=== PATIENT | female | born 1960 | race Caucasian/White ===

== ENCOUNTER 2022-05-29 01:03 | Day surgery (SDC) | payer OTHER, SELFPAY ==
[2022-05-15 13:26] VITALS: BMI 24.2
[2022-05-29 06:24] VITALS: BP 131/84; PULSE 72; RESP 18; TEMP 36.4; O2SAT 97; BMI 25.0
[2022-05-29] MEDS: LACTATED RINGERS 1,000 ML 150 ML IV CONT (06:27)
--- NOTE | 2022-05-29 07:21 | PM.HPGS ---
History of Present Illness History of Present Illness Consent: Risks, benefits, and alternatives have been discussed and questions answered. Patient agrees to proceed with procedure. Chief complaint: positive cologuard test Narrative: Penelope Casas is a 61 year old female Presents for screening colonoscopy. Patient recently identified with positive Cologuard test. Patient reports that her current weight appetite and bowel movements are normal. Patient denies abdominal pain. She has had no bleeding. Family history noncontributory. Review of Systems Review of Systems: Review of systems noncontributory. [facility] Past Medical History Medical History (Updated 03/21/22 @ 16:19 by Camille Maurer PA-C) History of basal cell cancer Hyperlipidemia Seborrheic keratoses Surgical History Surgical History History of tonsillectomy Family History Family History (Updated 02/26/22 @ 11:45 by Adrienne Lobo MA) Mother Depression Father No problems noted. Sibling No problems noted. Social History Social History (Updated 02/26/22 @ 11:47 by Adrienne Lobo MA) Years smoked: 15 Smoking status: Current every day smoker Tobacco type: cigarettes Alcohol intake: current Drinks per week: 1 Substance use: never Substance use type: does not use Lack of Transportation: No Lack of Food: Never True Current Housing: I Have Housing Concerned About Future Housing: No Difficulty Paying Gas/Electric Bills: No Difficulty Paying for Meds: No Currently Unemployed: No Difficulty w/ Childcare or Family Care: No Living arrangements: with family Occupation/Education: occupation Gender identity (if verbalized by the patient): Female Spiritual care concerns: No Meds Home Medications and Allergies Home Medications Medication Instructions Recorded Confirmed Type B6 1.7 mg-folic 400 mcg-B12 2.4 1 cap PO DAILY 02/26/22 05/29/22 History qlm-dwakbf-qzbaugflxojj oral capsule (Neuriva Plus Brain Performance) escitalopram oxalate 10 mg tablet 10 mg PO DAILY #90 tabs 02/26/22 05/29/22 Rx (Lexapro) omega-3 900 mg-dha 360 mg-epa 455 1 cap PO DAILY 02/26/22 05/29/22 History mg-fish oil 1,000 mg capsule guar gum 1 gram tablet 1 g PO DAILY 05/15/22 05/29/22 History multivitamin with minerals-folic 1 tablet PO DAILY 05/15/22 05/29/22 History acid 0.4 mg tablet Allergies Allergy/AdvReac Type Severity Reaction Status Date / Time No Known Allergies Allergy Verified 05/29/22 06:23 Vital Signs Vital Signs - 24 hr 05/29/22 06:24 Temperature 97.5 F L Pulse Rate 72 Respiratory Rate 18 Blood Pressure 131/84 Pulse Oximetry 97 Oxygen Delivery Room Air Exam Narrative: Physical exam reveals patient to be alert. Vital signs stable. HEENT exam is unremarkable. Patient is anicteric. Lungs are clear to auscultation and percussion. Heart is without murmur or extra sounds. Abdomen bowel sounds are present soft nontender with no organomegaly. Digital external rectal exam is normal. Assessment and Plan Assessment and plan (1) Positive colorectal cancer screening using Cologuard test: Code(s): R19.5 - Other fecal abnormalities Status: Acute Assessment and Plan: Patient had positive Cologuard test. There for screening colonoscopy will be performed today. Further recommendations may be given after endoscopy.
--- NOTE | 2022-05-29 07:32 | WPDANESEPPF ---
Anes - Initial Pre Proc Eval Procedure: Operation Date: 05/29/22 07:30 Proposed Procedures p Colonoscopy - Ron Neville MD Date/Time: 05/29/22 07:32 Surgeon: Ron Neville MD Pre Op Diagnosis: positive cologuard test Patient Data Age: 61 Gender: F Height: 1.68 m Weight: 70.2 kg Last Vital Signs Temp 97.5 F L 05/29/22 06:24 Pulse 72 05/29/22 06:24 Resp 18 05/29/22 06:24 BP 131/84 05/29/22 06:24 Pulse Ox 97 05/29/22 06:24 O2 Del Method Room Air 05/29/22 06:24 Allergies Allergy/AdvReac Type Severity Reaction Status Date / Time No Known Allergies Allergy Verified 05/29/22 06:23 Home Medications Medication Instructions Recorded Confirmed Type B6 1.7 mg-folic 400 mcg-B12 2.4 1 cap PO DAILY 02/26/22 05/29/22 History sjw-ghgrca-oczbayesszcj oral capsule (Neuriva Plus Brain Performance) escitalopram oxalate 10 mg tablet 10 mg PO DAILY #90 tabs 02/26/22 05/29/22 Rx (Lexapro) omega-3 900 mg-dha 360 mg-epa 455 1 cap PO DAILY 02/26/22 05/29/22 History mg-fish oil 1,000 mg capsule guar gum 1 gram tablet 1 g PO DAILY 05/15/22 05/29/22 History multivitamin with minerals-folic 1 tablet PO DAILY 05/15/22 05/29/22 History acid 0.4 mg tablet Patient hx anesthesia problems: none Family hx anesthesia problems: none Results Review: All pre-operative results and documents have been reviewed as part of the pre-operative evaluation. [facility] Past Medical History Medical History (Updated 03/21/22 @ 16:19 by Camille Maurer PA-C) History of basal cell cancer Hyperlipidemia Seborrheic keratoses Surgical History Surgical History History of tonsillectomy Family History Family History (Updated 02/26/22 @ 11:45 by Adrienne Lobo MA) Mother Depression Father No problems noted. Sibling No problems noted. Social History Social History (Updated 02/26/22 @ 11:47 by Adrienne Lobo MA) Years smoked: 15 Smoking status: Current every day smoker Tobacco type: cigarettes Alcohol intake: current Drinks per week: 1 Substance use: never Substance use type: does not use Lack of Transportation: No Lack of Food: Never True Current Housing: I Have Housing Concerned About Future Housing: No Difficulty Paying Gas/Electric Bills: No Difficulty Paying for Meds: No Currently Unemployed: No Difficulty w/ Childcare or Family Care: No Living arrangements: with family Occupation/Education: occupation Gender identity (if verbalized by the patient): Female Spiritual care concerns: No Anes - Eval Final PreProcedure Day of Procedure 05/29/22 07:32 Patient weight: normal Heart: regular rate and rhythm Lungs: clear to auscultation Airway: Mallampati scale class II Neurological: alert and oriented Last oral intake: >/= 8 hours ASA classification: II Emergent: no Anesthetic plan: proceed Anesthesia type and monitoring: general GIVS and standard monitoring Results Review: All pre-operative results and documents have been reviewed as part of the pre-operative evaluation. Informed Consent: The patient's anesthetic plan and its attendant risks and benefits were discussed with the patient/family/POA. Questions were solicited and answers provided to the satisfaction of the patient/family/POA.
[2022-05-29 07:53] VITALS: BP 101/47; PULSE 64; RESP 17; O2SAT 96
[2022-05-29 08:03] VITALS: BP 96/69; PULSE 63; RESP 18; O2SAT 99
[2022-05-29 08:13] VITALS: BP 100/53; PULSE 65; RESP 18; O2SAT 99
== END 2022-05-29 08:36 | disposition home or self-care (01) ==
PROVIDERS: PCP Physician Assistant Medical; Visit Provider Internal Medicine Gastroenterology
PROC: 0DJD8ZZ Inspection of Lower Intestinal Tract, Via Natural or Artificial Opening Endoscopic (ICD-10-PCS; CPT 45378; principal; 2022-05-29 07:30)
DX: R19.5 Other fecal abnormalities (principal); D12.2 Benign neoplasm of ascending colon; K57.30 Diverticulosis of large intestine without perforation or abscess without bleeding; K64.8 Other hemorrhoids; E78.5 Hyperlipidemia, unspecified; F17.210 Nicotine dependence, cigarettes, uncomplicated
CPT/HCPCS: 45385; 88305; J7120

== ENCOUNTER 2024-03-01 08:31 | Emergency (ER) | payer BC, SELFPAY ==
--- NOTE | ~2024-03-01 | XR_ITS ---
XR chest 2V Ordering provider: Lady Dexter MD History: 63 years Female with . pt states she has a cough x 10 days. hx of bronchitis . Comparison: October 29, 2010 FINDINGS: MEDIASTINUM: The cardiac silhouette is not enlarged. LUNGS: No infiltrates, effusions or pneumothorax. Emphysematous changes of the lungs. Slightly prominent bronchovascular markings in the lower lobes mo re on the right side. OTHER: Levoscoliosis. No free air under the diaphragm. IMPRESSION: Bronchovascular markings in the lower lobes more on the right side which may indicate early bronchopn eumonia. Follow-up advised. Reviewed, dictated and finalized at location A. [facility] [employer] [facility] IMPRESSION: Bronchovascular markings in the lower lobes more on the right side which may in dicate early bronchopneumonia. Follow-up advised.
[2024-03-01 08:36] VITALS: BP 141/65; PULSE 81; RESP 16; TEMP 36.8; O2SAT 96
[2024-03-01 08:42] VITALS: O2SAT 96
--- NOTE | 2024-03-01 09:00 | ED.URI ---
HPI - URI/Sore Throat General Chief Complaint: Upper Respiratory Infection Stated Complaint: cough, vomiting Time Seen by Provider: 03/01/24 08:59 Source: patient Mode of arrival: ambulatory Limitations: no limitations History of Present Illness HPI Narrative: PATIENT CAME TO THE ED FROM HOME WITH HER COMPLAINING OF PRODUCTIVE COUGH OF YELLOW SPUTUM IN THE LAST FEW DAYS PATIENT REPORTED UPPER RESPIRATORY VIRAL INFECTION LIKE SYMPTOMS STARTED OVER 10 DAYS AGO, WAS SEEN BY HER FAMILY PHYSICIAN 5 DAYS LATER HAD A SHOT OF STEROID, FEW DAYS LATER NO IMPROVEMENT, STARTED ON Z-SAVANNA[place], FAILED IS A COARSE, NO IMPROVEMENT. PATIENT IS HEALTHY OTHERWISE, SMOKES CIGARETTE. SHE DENIES ANY FEVER OR CHILLS OR SHORTNESS OF BREATH OR CHEST PAIN OR BACK PAIN Related Data Home Medications ?Medication ?Instructions ?Recorded ?Confirmed ?Last Taken ?Type omega-3 900 mg-dha 360 mg-epa 455 1 cap PO DAILY 02/26/22 02/23/24 05/28/22 History mg-fish oil 1,000 mg capsule multivitamin with minerals-folic 1 tablet PO DAILY 05/15/22 02/23/24 05/28/22 History acid 0.4 mg tablet Allergies Allergy/AdvReac Type Severity Reaction Status Date / Time No Known Allergies Allergy Verified 03/01/24 08:42 Review of Systems Review of Systems: All systems reviewed & are unremarkable except as noted in HPI and below PMFSH Past Medical History Medical History Hyperlipidemia History of basal cell cancer Seborrheic keratoses Surgical History Surgical History History of tonsillectomy Family History Family History Mother Depression Father No problems noted. Sibling No problems noted. Social History Social History Years smoked: 15 Smoking status: Current every day smoker Tobacco type: cigarettes Alcohol intake: current Drinks per week: 1 Substance use: never Substance use type: does not use Lack of Transportation: No Lack of Food: Never True Current Housing: I Have Housing Concerned About Future Housing: No Difficulty Paying Gas/Electric Bills: No Difficulty Paying for Meds: No Currently Unemployed: No Difficulty w/ Childcare or Family Care: No Living arrangements: with family Occupation/Education: occupation Gender identity (if verbalized by the patient): Female Spiritual care concerns: No Exam Narrative: GENERAL APPEARANCE: WELL-DEVELOPED, WELL-NOURISHED SKIN: NORMAL COLOR HEAD: NORMOCEPHALIC, NONTRAUMATIC EYES: CLEAR CONJUNCTIVA ENT: OROPHARYNX NORMAL, EARS NORMAL, NOSE NORMAL NECK: SUPPLE, NONTENDER CHEST AND RESPIRATORY: AIRWAY PATENT, NO RESPIRATORY DISTRESS, NO ACCESSORY MUSCLE USE FEW SCATTERED RHONCHI HEART: REGULAR RATE/RHYTHM ABDOMEN: SOFT, NONTENDER, NO ORGANOMEGALY, QUIET BOWEL SOUNDS MUSCULOSKELETAL: NORMAL RANGE OF MOTION, NONTENDER BACK NEUROLOGIC: ALERT AND ORIENTED ?3, COMMUNITY SUPPORT PROFESSIONAL IS NORMAL TESTED, NO GROSS MOTOR DEFICIT Course Vital Signs Vital signs: Vital Signs Temperature 36.8 C 03/01/24 08:36 Pulse Rate 81 03/01/24 08:36 Respiratory Rate 16 03/01/24 08:36 Blood Pressure 141/65 H 03/01/24 08:36 Pulse Oximetry 96 03/01/24 08:36 Oxygen Delivery Room Air 03/01/24 08:36 Temperature 36.8 C 03/01/24 08:36 Pulse Rate 81 03/01/24 08:36 Respiratory Rate 16 03/01/24 08:36 Blood Pressure 141/65 H 03/01/24 08:36 Pulse Oximetry 96 03/01/24 08:42 Oxygen Delivery Room Air 03/01/24 08:42 MDM - URI/Sore Throat MDM Narrative Medical decision making narrative: PATIENT PRESENTS WITH PRODUCTIVE COUGH VITAL SIGNS ARE STABLE PHYSICAL EXAMINATION SHOWING SCATTERED RHONCHI PATIENT BEEN FEELING SICK FOR OVER 10 DAYS, HIGH LIKELY STARTED WITH VIRAL INFECTION, SECONDARY BACTERIAL INFECTION NOW IS SUSPECTED. CHEST X-RAY SHOWED POSSIBLE BRONCHO PNEUMONIA, PATIENT WILL BE DISCHARGED HOME ON L[place]AQUIN, PREDNISONE, TESSALON AND ALBUTEROL INHALER Differential Diagnosis Differential diagnosis: Likely upper respiratory infection, sinusitis, viral infection, bronchitis, influenza and other Lab Data Labs: Lab Results 03/01/24 Range/Units 08:47 Influenza A (RT-PCR) Negative (Negative) Influenza B (RT-PCR) Negative (Negative) RSV (RT-PCR) Negative (Negative) SARS-CoV-2 RNA (RT-PCR) Negative (Negative) Imaging Data Radiologist's impression: Impressions Chest X-Ray 03/01/24 09:30 IMPRESSION: Bronchovascular markings in the lower lobes more on the right side which may indicate early bronchopneumonia. Follow-up advised. Critical Care Time Critical Care Time Critical Care Time: No Discharge Plan Discharge Clinical Impression: Bronchopneumonia, Tobacco dependence Patient Disposition: Home, Self-Care Condition: Stable Instructions: Antibiotic Form, How to Stop Smoking (ED), Community Acquired Pneumonia (ED) Additional Instructions: RETURN IF SYMPTOMS ARE WORSENING , CALL YOUR FAMILY PHYSICIAN FOR APPOINTMENT, TAKE TYLENOL, IBUPROFEN NEEDED FOR ACHES AND PAIN, CONTINUE HOME MEDICATIONS. Patient Language: Mongolian Prescriptions: New levofloxacin 750 mg tablet 750 mg PO DAILY Qty: 7 5RF prednisone 20 mg tablet 40 mg PO DAILY 5 Days Qty: 10 0RF albuterol sulfate 90 mcg/actuation HFA aerosol inhaler 2 puff inhalation QID PRN (Reason: shortness of breath or wheezing) Qty: 8.5 0RF benzonatate 200 mg capsule 200 mg PO TID Qty: 30 0RF No Action omega 1-pul-ico-fish oil 900 mg-360 mg- 455 mg-1,000 mg capsule 1 cap PO DAILY multivit with min-folic acid [Adult One Daily Multivitamin] 0.4 mg Tablet 1 tablet PO DAILY azithromycin 250 mg tablet See Rx Instructions PO .COMPLEX Qty: 6 0RF Rx Instructions: For 250 mg dose pack: take 500 mg today (day 1), then 250 mg for 4 days (days 2-5) PO methylprednisolone [Medrol ([place])] 4 mg tablets,dose pack See Rx Instructions PO PER PKG DIR Qty: 21 0RF Rx Instructions: PO PER PKG DIR for 6 days Follow-up/Referrals: Camille Maurer PA-C [Primary Care Provider] -
[2024-03-01 09:53] LABS: Influenza A QL RT-PCR Negative (Negative); Influenza B QL RT-PCR Negative (Negative); RSV RNA, RT-PCR Negative (Negative); SARS-CoV-2 RNA PCR Negative (Negative)
[2024-03-01 10:54] VITALS: BP 109/72; PULSE 82; RESP 15; TEMP 36.6; O2SAT 97
== END 2024-03-01 10:58 | disposition home or self-care (01) ==
PROVIDERS: Emergency Provider Emergency Medicine; PCP Physician Assistant Medical
DX: J18.0 Bronchopneumonia, unspecified organism (principal); F17.210 Nicotine dependence, cigarettes, uncomplicated; Z20.822 Contact with and (suspected) exposure to COVID-19; E78.5 Hyperlipidemia, unspecified; Z85.828 Personal history of other malignant neoplasm of skin
CPT/HCPCS: 71046; 87637; 99283